=== PATIENT | male | born 1990 | race Caucasian/White ===

== ENCOUNTER → 2019-07-17 | Outpatient (CLI) | payer SELFPAY | LOC: BHSO 13:51 | DX: F33.2 Major depressive disorder, recurrent severe without psychotic features (principal) ==

== ENCOUNTER → 2019-08-25 | Outpatient (CLI) | payer SELFPAY | LOC: BHSO 14:23 | DX: F41.1 Generalized anxiety disorder (principal) | CPT/HCPCS: G0463 ==

== ENCOUNTER → 2019-09-29 | Outpatient (CLI) | payer SELFPAY | LOC: BHSO 11:23 | DX: F33.41 Major depressive disorder, recurrent, in partial remission (principal) | CPT/HCPCS: G0463 ==

== ENCOUNTER → 2020-02-28 | Outpatient (CLI) | payer BC | LOC: COL.LAB 02-27 19:10 | DX: R51 Headache (principal); R19.7 Diarrhea, unspecified; M79.10 Myalgia, unspecified site; Z20.828 Contact with and (suspected) exposure to other viral communicable diseases ==